=== PATIENT | female | born 1980 | race Caucasian/White ===

== ENCOUNTER 2024-11-15 12:01 | Emergency (ER) | payer BC ==
[~2024-11-15] VITALS: Ht 170.2 cm; Wt 125.4 kg
[~2024-11-15 12:01] MED LIST: ESCI10TA PO; LEVO50TA PO; NAPR220C15 PO; OMEP20TA23 PO; ZOLP10TA5 PO
[2024-11-15 12:29] LABS: STREP A SCREEN NEGATIVE (Neg)
[2024-11-15] MEDS: dexamethasone sod phosphate 10mg/ml inj IM STA (13:29)
[2024-11-15] MEDS: ketorolac trometh 15mg/ml vial 15 MG/ML ML IM ONE (13:31)
[2024-11-15] MEDS ORDERED: TRAM50TA2 PO (14:01)
[2024-11-15 14:16] VITALS: BP 138/84; PULSE 98; RESP 16; TEMP 98.2; O2SAT 98
== END 2024-11-15 14:17 | disposition home or self-care (01) ==
LOC: ER 12:01
DX: J02.9 Acute pharyngitis, unspecified (principal); M43.6 Torticollis
CPT/HCPCS: 87081; 87880; 96372; 99284; J1100; J1885